=== PATIENT | female | born 1995 | race African-American/Black ===

== ENCOUNTER 2023-01-25 23:46 | Emergency (ER) | payer SELFPAY ==
[2023-01-25 23:51] VITALS: BP 141/88; PULSE 96; O2SAT 100
[2023-01-26 00:06] VITALS: BP 119/60; PULSE 87; PULSE 91; RESP 16; RESP 18; TEMP 36.7; O2SAT 100; O2SAT 98; BMI 25.8
--- NOTE | 2023-01-26 00:15 | ED_ITS ---
HPI - Allergic Reaction General Chief complaint: Allergic Reaction Stated complaint: unknown Allergic Reaction Time Seen by Provider: 01/26/23 00:15 Source: patient Mode of arrival: ambulatory Limitations: no limitations History of Present Illness HPI narrative: Patient with no history of allergic reaction had some cake and food at around 17:00 after after that patient started having itching all over the body with swelling of the eyelids no throat swelling no lip swelling no shortness of breath no nausea vomiting seen by EMS to give 50 mg of Benadryl IV and everything as improved no shortness of breath no throat swelling patient never had allergic reaction in the past Related Data Allergies Allergy/AdvReac Type Severity Reaction Status Date / Time No Known Allergies Allergy Verified 01/26/23 00:30 Review of Systems Review of Systems: Yes all other systems are reviewed and are negative [facility] [place] Social History Social History Advance Directives: No Advance Directives Information Provided: Yes Physical Exam ED Vital Signs: Vital Signs - 24 hr 01/26/23 00:06 01/26/23 00:06 Temperature 98.1 F Pulse Rate 87 91 Respiratory Rate 16 18 Blood Pressure 119/60 119/60 Pulse Oximetry 98 100 Oxygen Delivery Method Room Air Room Air BMI result Body Mass Index 25.8 Appearance: Alert. Oriented X3. No acute distress. Eyes: PERRLA, No Nystagmus slight swelling of the eyelids+ ENT: Pharynx normal. Oral Mucosa moist Neck: Normal inspection. Neck supple. CVS: Normal heart rate and rhythm. Pulses normal. Respiratory: No respiratory distress. Equal air entry bilateral, no wheezing/rales/rhonchi Abdomen: Soft and nontender. Bowel sounds are present, Skin: Skin warm and dry. Normal skin color. Normal skin turgor. Extremities: No lower extremity edema. No calf tenderness Neuro: Oriented X 3. Medical Decision Making Medical Decision Making MDM Narrative: Patient likely had allergic reaction to food but she ate was given Benadryl by the EMS will give her Decadron p.o. advised to buy [id number] Benadryl tablet 1-2 tablets every 6 hours as needed Discharge Plan Discharge Clinical Impression: Allergic reaction Patient Disposition: Home, Self-Care Instructions: General Allergic Reaction (ED) Additional Instructions: Cause of allergic reaction is not very clear Take Benadryl 25-50 mg every 6 hours as needed for the rash
[2023-01-26 01:03] VITALS: BP 122/65; PULSE 96; RESP 16; TEMP 36.8; O2SAT 98
[2023-01-26] MEDS: dexAMETHasone 2 MG TABLET 10 MG PO (01:14)
== END 2023-01-26 01:43 | disposition home or self-care (01) ==
PROVIDERS: Emergency Provider Internal Medicine
DX: L29.9 Pruritus, unspecified (principal); T78.40XA Allergy, unspecified, initial encounter; X58.XXXA Exposure to other specified factors, initial encounter
CPT/HCPCS: 99283; J8540